=== PATIENT | male | born 1985 | race American Indian/Alaskan Native ===

== ENCOUNTER 2018-05-11 14:37 | Emergency (ER) | payer SELFPAY ==
[2018-05-11 15:43] LABS: Hematocrit 46.9 % (35.5-45.6); Hemoglobin 15.7 gm/dl (11.8-15.2); Mean Corpuscular HGB Conc 34 % (32-34); Mean Corpuscular Hemoglobin 27 pg (28-32); Mean Corpuscular Volume 81 fl (84-94); Platelet Count 258 K/mm3 (140-440); Red Blood Count 5.79 M/mm3 (3.65-5.03); Red Cell Distribution Width 14.1 % (13.2-15.2)
[2018-05-11 15:54] LABS: BUN/Creatinine Ratio 13; Blood Urea Nitrogen 14 mg/dL (9-20); Calcium 9.9 mg/dL (8.4-10.2); Hemolysis Index 8
--- NOTE | 2018-05-11 16:24 | Emergency Department Report ---
ED Psych HPI - General Chief Complaint: Psych Stated Complaint: PSYCH EVAL Time Seen by Provider: 05/11/18 16:21 Source: patient Mode of arrival: Ambulatory Limitations: No Limitations - History of Present Illness Initial Comments: Patient jumped out of the balcony according to his sister and started running in front of traffic. -: Sudden, This afternoon Associated Psychiatric Symptoms: none History of same: Yes Quality: constant Improves With: none Worsens With: none Associated Symptoms: denies other symptoms Treatments Prior to Arrival: none - Related Data Allergies Allergy/AdvReac Type Severity Reaction Status Date / Time No Known Allergies Allergy Unverified 05/11/18 15:03 ED Review of Systems ROS: Stated complaint: PSYCH EVAL Other details as noted in HPI Comment: All other systems reviewed and negative Constitutional: denies: chills, fever Eyes: denies: eye pain, eye discharge ENT: denies: ear pain, dental pain Respiratory: denies: cough, shortness of breath Cardiovascular: denies: chest pain, palpitations Endocrine: no symptoms reported Gastrointestinal: denies: abdominal pain, nausea, vomiting, diarrhea Genitourinary: denies: urgency, dysuria, frequency Musculoskeletal: denies: back pain Skin: denies: rash, lesions Neurological: denies: headache, weakness, numbness Psychiatric: denies: anxiety, depression Hematological/Lymphatic: denies: easy bleeding, easy bruising ED Past Medical Hx - Past Medical History Previous Medical History?: Yes Hx CVA: Yes Hx Psychiatric Treatment: Yes - Surgical History Additional Surgical History: unknown - Social History Smoking Status: Current Every Day Smoker Substance Use Type: Alcohol, Marijuana ED Physical Exam - General Limitations: No Limitations General appearance: alert, in no apparent distress - Head Head exam: Present: atraumatic, normocephalic, normal inspection - Eye Eye exam: Present: normal appearance, PERRL, EOMI Pupils: Present: normal accommodation - ENT ENT exam: Present: normal exam, mucous membranes moist - Neck Neck exam: Present: normal inspection, full ROM - Respiratory Respiratory exam: Present: normal lung sounds bilaterally. Absent: respiratory distress, wheezes, rales, rhonchi - Cardiovascular Cardiovascular Exam: Present: regular rate, normal rhythm, normal heart sounds - GI/Abdominal GI/Abdominal exam: Present: soft, normal bowel sounds. Absent: distended, tenderness, guarding, rebound - Extremities Exam Extremities exam: Present: normal inspection, full ROM, normal capillary refill - Back Exam Back exam: Present: normal inspection, full ROM. Absent: tenderness - Neurological Exam Neurological exam: Present: alert, oriented X3, CN II-XII intact - Psychiatric Psychiatric exam: Present: normal affect, normal mood - Skin Skin exam: Present: warm, dry, intact, normal color ED Course Vital Signs 05/11/18 05/11/18 15:03 16:10 Temperature 98.2 F Pulse Rate 101 H Respiratory 18 20 Rate Blood Pressure 144/100 O2 Sat by Pulse 99 99 Oximetry - Reevaluation(s) Reevaluation #1: 05/11/18 18:46 Patient is medically clear for psychiatric evaluation. ED Medical Decision Making - Lab Data Result diagrams: 05/11/18 15:32 05/11/18 15:32 - Medical Decision Making Psychosis. Critical care attestation.: If time is entered above; I have spent that time in minutes in the direct care of this critically ill patient, excluding procedure time. ED Disposition Clinical Impression: Psychotic episode, Marijuana abuse Disposition: [id number]/TX-65 PSY HOSP/PSY UNIT Is pt being admited?: No Does the pt Need Aspirin: No Condition: Stable Referrals: PRIMARY CARE, [Primary Care Provider] - 3-5 Days Time of Disposition: 18:47
[2018-05-11 16:36] LABS: Basophils % (Manual) 0 % (0.0-1.8); Eosinophils % (Manual) 0 % (0.0-4.3); Total Cells Counted 100
[2018-05-11 16:37] LABS: RBC Morphology Normal
[2018-05-11 17:01] LABS: Bacteria,Urine 1+ /HPF (Negative); Bilirubin,Urine NEG (Negative); Blood,Urine NEG (Negative); Color,Urine Yellow (Yellow); Mucus,Urine 2+ /HPF
[2018-05-11 17:06] LABS: Amphetamine Screen,Urine PRESUMPTIVE NEGATIVE; Benzodiazepines Screen,Urine PRESUMPTIVE NEGATIVE; Cocaine Screen,Urine PRESUMPTIVE NEGATIVE; Methadone Screen,Urine PRESUMPTIVE NEGATIVE; Opiate Screen,Urine PRESUMPTIVE NEGATIVE
[2018-05-11 17:14] LABS: Cannabinoid Screen,Urine PRESUMPTIVE POSITIVE
[2018-05-11 17:27] LABS: Alanine Aminotransferase 25 units/L (7-56); Albumin 4.6 g/dL (3.9-5)
--- NOTE | 2018-05-11 17:35 | Cat Scan Report ---
FINAL REPORT EXAM: CT HEAD/BRAIN WO CON HISTORY: Psychosis, H/O CVA COMPARISON: None available. TECHNIQUE: Axial images obtained skull base through vertex. FINDINGS: No acute intracranial hemorrhage, midline shift or pathologic extra axial fluid collection. Ventricles and cisterns are normal in size and configuration for the patient's age. Blank-white differentiation preserved. Calvarium grossly intact. Ocular globes are grossly unremarkable. Near-complete opacification left maxillary sinus and left sphenoid sinus. Mild mucosal thickening of the ethmoid air cells. Mastoid air cells are clear. IMPRESSION: No grossly acute intracranial abnormality. Moderate to severe left maxillary sinus and left sphenoid sinus disease.
[2018-05-11 17:36] LABS: Bilirubin,Direct < 0.2 mg/dL (0-0.2)
--- NOTE | 2018-05-11 18:44 | XRay Report ---
FINAL REPORT EXAM: XR CHEST 1V AP HISTORY: leukocytosis COMPARISON: None available. FINDINGS: Frontal view(s) of the chest obtained. Heart upper limits normal in size.. No gross consolidation or effusion. No pneumothorax. IMPRESSION: No grossly acute findings.
[2018-05-12] MEDS ORDERED: COGENTIN IM ONE (02:02)
[2018-05-12] MEDS ORDERED: GEODON IM ONE ×2 (02:02→22:43)
--- NOTE | 2018-05-12 19:19 | Consultation ---
History of Present Illness - Reason for Consult Consult date: 05/12/18 Reason for consult: Mental Health Evaluation Requesting physician: JP ALMAZAN - Chief Complaint Chief complaint: "I didn't do anything wrong" - History of Present Psychiatric Illness 33 y.o. AA male presenting to the ER for mental health evaluation. Per the record the patient jumped off a balcony and ran into traffic. Today the patient is calm, but guarded during the assessment. Upon my arrival to his room, the patient was siting in the corner of the seclusion room. He stated, "I'm comfortable here." He stated that he jumped off the porch, not a balcony and walked off. He denies walking into traffic when asked. He stated that he wanted to "blow off steam" because he got into an argument with a family member. He denies a mental health dx, SI/HI's, and AVH's. He was asked a second time about his mental health, he paused and would not answer. He denies alcohol consumption (etoh), but admitted to smoking marijuana. Medications and Allergies Allergies Allergy/AdvReac Type Severity Reaction Status Date / Time No Known Allergies Allergy Unverified 05/11/18 15:03 Home Medications Medication Instructions Recorded Confirmed Last Taken Type Unobtainable 05/11/18 05/11/18 Unknown History Past psychiatric history - Past Medical History Past Medical History: No medical history Past Surgical History: No surgical history - past Psychiatric treatment and history psychiatric treatment history: Denies a psy hx and fam psy hx. - Social History Social history: lives with family Mental Status Exam - Vital signs Last Vital Signs Temp 98.5 F 05/12/18 10:00 Pulse 80 05/12/18 10:00 Resp 18 05/12/18 10:00 BP 149/89 05/12/18 10:00 Pulse Ox 99 05/12/18 10:00 - Exam Narrative exam: MSE: Appearance: calm, cooperative Behavior: poor eye contact Speech: regular rate and tone Mood: "okay" guarded Affect: congruent to mood Thought Process: circumstantial Thought Content: denies SI/HI's and AVH's Motor Activity: sitting up in bed Cognition: A/O x 3 Insight: variable Judgment: variable Results Result Diagrams: 05/11/18 15:32 05/11/18 15:32 All other labs normal. Assessment and Plan Assessment and plan: Impression: R/O Mood DO. Cannabis Use DO. Today the patient is calm, but guarded during the assessment. Recommendation/Plan: Continue 1013 and gather collateral information to help determine treatment and proper dispo.
--- NOTE | 2018-05-12 19:36 | Emergency Department Report ---
Blank Doc - Documentation Documentation: I went to see the patient because of a recent seclusion order. The patient is here secondary to some questionable activity that would include self-harm. Apparently the patient jumped off either a balcony or a porch and then allegedly was going to run into traffic. The patient was seen by the psychiatry service who has recommended to continue the 1013 for now. However the patient just recently took off running to [facility] from the emergency department. He was stopped by security and redirected into bed 14 for some temporary seclusion. The patient is currently calm, ambulatory and appears in no acute distress. We will continue to monitor and evaluate for removal of seclusion status.
[2018-05-12] MEDS ORDERED: BENADRYL IM ONE (22:43)
[2018-05-12] MEDS ORDERED: WATER FOR INJ (PF) ONE (22:44)
--- NOTE | 2018-05-13 17:51 | Progress Note ---
Subjective - Reason for Consult Consult date: 05/13/18 Reason for consult: Psychiatry Follow-up - Chief Complaint Chief complaint: "I'm okay to go home" 33 y.o. AA male presenting to the ER for mental health evaluation. Per the record the patient jumped off a balcony and ran into traffic. Today the patient is calm, but disorganized during the assessment. The patient's story on how he ended up at the ER changed per his initial assessment. He is less organized not lucid during the interview. His answers to questions are not logical. He would not confirm or deny erratic sleep when asked. Per the record, the patient tried to elope today. He denies SI/HI's and AVH's. 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 Today the patient is calm, but disorganized during the assessment. DDx: R/O Bipolar DO with psychosis, R/O Substance Induced Psychosis Recommendation/Plan: Continue 1013 with placement to inpatient psy services. Start Seroquel 200 mg PO HS for psychosis/mood. Discussed possible metabolic side effects of Seroquel with the patient.
[2018-05-14 11:11] LABS: Hematocrit 44.7 % (35.5-45.6); Hemoglobin 14.7 gm/dl (11.8-15.2); Mean Corpuscular HGB Conc 33 % (32-34); Mean Corpuscular Hemoglobin 27 pg (28-32); Mean Corpuscular Volume 82 fl (84-94); Platelet Count 266 K/mm3 (140-440); Red Blood Count 5.47 M/mm3 (3.65-5.03)
[2018-05-14 11:59] LABS: Eosinophils % (Manual) 0 % (0.0-4.3); Total Cells Counted 100
[2018-05-14 12:00] LABS: Platelet Estimate Cons; RBC Morphology Normal
--- NOTE | 2018-05-14 12:37 | Progress Note ---
Subjective - Reason for Consult Consult date: 05/14/18 Reason for consult: Psychiatric Follow-up Evaluation - Chief Complaint Chief complaint: "I feel great" Patient is a 33 year old male who presents to the ER for mental health evaluation. Per the record the patient jumped off a balcony and ran into traffic. Today the patient is cooperative but anxious during the assessment. He continues to be disorganized. The patient's story on how he ended up at the ER changed per his initial assessment. Patient is attempting to minimize psychosis/mood for discharge. He reports " I'm here because I was overworking myself." His answers to questions are not logical. He would not confirm or deny erratic sleep when asked. Per the record, the patient has tried to elope since being hospitalized. He denies SI/HI's and AVH's. Mental Status Exam - Vital signs Last Vital Signs Temp 98.1 F 05/14/18 10:58 Pulse 56 L 05/14/18 10:58 Resp 20 05/14/18 10:58 BP 132/86 05/14/18 10:58 Pulse Ox 100 05/14/18 10:58 - Exam Narrative exam: Mental Status Exam General Appearance: Causally Dressed-hospital gown Eye Contact: Intermittent Orientation: Alert and oriented x 4 ( person, place, time, and situation) Attitude/Behavior: Cooperative and evasive Sensorium: Distracted Psychomotor & Musculoskeletal Activity: Ambulatory Mood: "I feel great" Affect: Constricted Speech/Language: Regular rate and tone. Thought Processes: Circumstantial, tangential Thought Content: Reality oriented Perception: Patient denies Concentration/Attention: Impaired Suicidal Ideations/Plan: Patient denies. Homicidal Ideations/Plan: Patient denies. Insight: Poor Judgment: Poor Assessment and Plan Impression: Unspecified Mood DO with psy features. Cannabis Use DO. Today the patient is anxious, but disorganized during the assessment. He denies SI/HI's and A/VH's. DDx: R/O Bipolar DO with psychosis, R/O Substance Induced Psychosis Recommendation/Plan: 1. Continue 1013 with placement to inpatient psychiatric services. 2. Continue Seroquel 200 mg PO HS for psychosis/mood. Discussed possible metabolic side effects of Seroquel with the patient. 3. Will continue to monitor psychosis, mood, thought process, sleep, appetite, compliance, and side effects.
[2018-05-14] MEDS ORDERED: HALDOL ONE (16:46)
[2018-05-14] MEDS ORDERED: ATIVAN ONE (16:47)
[2018-05-14] MEDS ORDERED: ATIVAN IM ONE (16:53)
[2018-05-14] MEDS ORDERED: HALDOL IM ONE (16:54)
--- NOTE | 2018-05-14 18:41 | Emergency Department Report ---
Blank Doc - Documentation Documentation: Repeat CBC shows resolution of idiopathic leukocytosis. Pt is medically cleared.
--- NOTE | 2018-05-15 12:26 | Progress Note ---
Subjective - Reason for Consult Consult date: 05/15/18 Reason for consult: Psychiatry Follow-up - Chief Complaint Chief complaint: "I don;t need to here" Patient is a 33 year old male who presents to the ER for mental health evaluation. Per the record the patient jumped off a balcony and ran into traffic. Today the patient is cooperative during the assessment. He continues to be disorganized. He stated that he came to ER because he needed a "break." He could not elaborate why he needed a break when asked. He denies SI/ HI's and AVH's. No indications of side effects of his medication. 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 Today the patient is cooperative during the assessment. DDx: R/O Bipolar DO with psychosis, R/O Substance Induced Psychosis Recommendation/Plan: Continue 1013 with placement to [facility] pending placement. Continue Seroquel 200 mg PO HS for psychosis/mood. Discussed possible metabolic side effects of Seroquel with the patient.
[2018-05-16 11:50] VITALS: BP 135/90
--- NOTE | 2018-05-16 13:48 | Progress Note ---
Subjective - Reason for Consult Reason for consult: depression - Chief Complaint Chief complaint: Subjectively: At the current time patient reports that his suicidal thoughts have abated. Furthermore, patient not reporting psychotic symptoms currently. Mental status examination: 33-year-old male mildly disheveled and malodorous who is mostly guarded and mildly evasive. Patient has otherwise appropriate eye contact. Patient self reports mood as fine but appears somewhat constricted on examination. Speech is clear and coherent, logical goal-directed without loose associations. Patient currently denying suicidal homicidal thoughts and denies any intent or plan. Patient denies auditory or visual hallucinations. No other delusions noted on examination. Consultation tension intact memory intact and sad judgment fair. ADLs fair. Plan: Pending transfer to [facility] Continue current Seroquel dosing Continue to evaluate weight on daily basis patient needs to remain on 1013 On this assessment, complete a detailed suicide risk assessment to ensure patient continues to meet criteria for 1013. The patient no longer meeting criteria for 1013, recent 1013 upon completion of suicide risk assessment and refer patient to appropriate level of care. Mental Status Exam - Vital signs Last Vital Signs Temp 98.6 F 05/16/18 11:46 Pulse 72 05/16/18 11:46 Resp 72 H 05/16/18 11:46 BP 135/90 05/16/18 11:46 Pulse Ox 100 05/15/18 22:00
== END 2018-05-16 23:24 ==
LOC: ED 14:37 → EEVIPCON 14:37 → ED 05-16 23:24
DX: F29 Unspecified psychosis not due to a substance or known physiological condition (principal); F39 Unspecified mood [affective] disorder; F12.10 Cannabis abuse, uncomplicated; F17.200 Nicotine dependence, unspecified, uncomplicated; Z86.73 Personal history of transient ischemic attack (TIA), and cerebral infarction without residual deficits; Z79.899 Other long term (current) drug therapy
CPT/HCPCS: 36415; 70450; 71045; 80048; 80074; 80307; 81001; 85007; 85025; 96372; 99285; G0480; J0515; J1200; J1630; J2060; J3486; 80320